=== PATIENT | male | born 1995 | race Caucasian/White ===

== ENCOUNTER 2017-11-22 22:19 | Inpatient (IN) | payer BC, OTHER ==
[2017-11-22] MEDS ORDERED: Ibuprofen 800 MG TAB ONE (22:35)
[2017-11-22] MEDS ORDERED: Ondansetron HCl/PF 4 MG/2 ML Vial ONE (22:35)
[2017-11-22 23:01] LABS: #Basophils 0.1 thou/uL (0.0-0.2); #Eosinphils 0.1 thou/uL (0.0-0.7); #Lymphocytes 4.7 thou/uL (1.20-3.40); #Monocytes 1.4 thou/uL (0.11-0.59); #Neutrophils 8.3 thou/uL (1.40-6.50); %Basophils 0.9 % (0.0-1.0); %Eosinophils 0.6 % (0.0-10.0); %Lymphocytes 32.3 % (28.0-48.0); %Monocytes 9.5 % (0.0-4.0); %Neutrophils 56.7 % (31.0-61.0); Hemoglobin 13.8 g/dL (14.0-18.0); Mean Corpuscular HGB CONC 35.6 g/dL (32.0-36.0); Mean Corpuscular Hemoglobin 31.4 pg (25.0-35.0); Mean Corpuscular Volume 88.1 fl (77.0-87.0); Mean Platelet Volume 9.3 fL (7.4-10.4); Platelet Count 259 thou/uL (130-400); RBC Distribution Width 9.1 % (11.5-14.5); Red Blood Cell (RBC) Count 4.41 mill/uL (4.00-5.20); White Blood Cell (WBC) Count 14.6 thou/uL (4.8-10.8)
--- NOTE | 2017-11-22 23:14 | RAD ---
TWO VIEWS OF THE CHEST 11/22/17 HISTORY: Cough and flu-like symptoms for four days. FINDINGS: Two views of the chest show normal sized cardiomediastinal silhouette. There is no evidence of consol idation, mass, or pleural effusion. The bones are unremarkable. IMPRESSION: No evidence of acute cardiopulmonary disease. POS: [facility]
[2017-11-22 23:15] LABS: ALT (SGPT) 31 U/L (8-55); AST (SGOT) 21 U/L (5-34); Albumin 4.1 g/dL (3.5-5.0); Alkaline Phosphatase 87 U/L (Less than 750); Anion Gap 15 mmol/L (10-20); BUN (Urea Nitrogen) 7 mg/dL (8.9-20.6); Bilirubin, Total 2.2 mg/dL (0.2-1.2); CK (CPK) 163 U/L (30-200); Calc. Creatinine Clearance 0 mL/min (70-130); Calcium 9.2 mg/dL (7.8-10.44); Carbon Dioxide 23 mmol/L (22-29); Chloride 103 mmol/L (98-107); Estimated GFR-MDRD Greater than 90; Globulin 3.6 g/dL (2.4-3.5); Glucose 106 mg/dL (70-105); Potassium 3.6 mmol/L (3.5-5.1); Protein, Total 7.7 g/dL (6.0-8.3); Sodium 137 mmol/L (136-145)
[2017-11-22 23:16] LABS: CKMB 0.6 ng/mL (0-6.6); Troponin I 0.067 ng/mL (< 0.028)
[2017-11-22] MEDS ORDERED: Sodium Chloride 0.9% 100 ML ONE (23:53)
[2017-11-22] MEDS ORDERED: Piperacillin/Tazobactam 3.375 GM VIAL ONE (23:53)
--- NOTE | 2017-11-22 23:59 | CT ---
CTA OF THE CHEST WITH CONTRAST: 11/22/17 COMPARISON: None. HISTORY: Cough for a month and dyspnea. TECHNIQUE: Multiple contiguous axial images were obtained in a CTA of the chest with contrast per pulmonary embo lism protocol. 3D oblique MIP reformats and direct coronal reformats were performed. FINDINGS: The pulmonary arteries are well opacified without filling defects to suggest pulmonary emboli. The he art is normal in size. No hilar or mediastinal lymphadenopathy are seen. No pneumothorax or pleural effusion are seen. No suspicious pulmonary nodule is identified. No focal infiltrates are seen in the lungs. The visualized subdiaphragmatic structures are unremarkable. The bones and chest wall soft tissues ar e unremarkable. IMPRESSION: No evidence of pulmonary thromboembolism or acute cardiopulmonary process. POS: [facility]
[2017-11-23 00:11] LABS: Bilirubin Negative (Negative); Blood, Urine Moderate (Negative); Clarity Slightly Cloudy (Clear); Glucose, Urine (Dipstick) Negative (Negative); Leukocyte Negative (Negative); Nitrite Negative (Negative); Protein, Urine (Dipstick) 30 mg/dL (Neg-Trace); Urobilinogen > or = 8.0 mg/dL (0.2-1.0)
[2017-11-23 00:19] LABS: Hyaline Casts/LPF NONE SEEN LPF (0-3 Hyaline); Squamous Epithelial 0-3 HPF (0-3); WBC/HPF 0-3 HPF (0-3)
[2017-11-23 00:20] LABS: Bacteria/HPF Rare-Few HPF (None Seen)
[2017-11-23] MEDS ORDERED: Acetaminophen 325 MG TAB PO PRN (01:39)
[2017-11-23] MEDS ORDERED: Sodium Chloride 0.9% 1,000 ML IV SCH ×2 (01:39→13:39)
[2017-11-23] MEDS ORDERED: Ondansetron HCl/PF 4 MG/2 ML Vial IVP PRN ×2 (01:39→08:58)
[2017-11-23] MEDS ORDERED: Ondansetron ODT 4 MG TAB SL PRN (01:39)
[2017-11-23 02:17] VITALS: BMI 34.3
[2017-11-23 02:26] LABS: Troponin I 0.072 ng/mL (< 0.028)
[2017-11-23] MEDS ORDERED: HYDROcodone/Acetaminophen 5/325 mg Tablet PO PRN (03:20)
[2017-11-23] MEDS: Sodium Chloride 0.9% 1,000 ML IV SCH ×2 (03:49→12:27)
--- NOTE | 2017-11-23 04:05 | HP ---
CHIEF COMPLAINT: Fevers. HISTORY OF PRESENT ILLNESS: The patient is a 22-year-old male who presents with a 3-day history of w orsening body aches, fevers, coughing and chills as well as fatigue. The patient was seen by his [facility] doctor and started on Tamiflu 2 days ago; however, he has tested negative for the flu. Of note, he was in [facility] on 10/23/2017 to 10/30/2017. He had a cough since returning from there; however, none of the other symptoms. The patient also has had some decreased appetite since he start ed having his fevers. PAST MEDICAL HISTORY: Childhood asthma. PAST SURGICAL HISTORY: None. SOCIAL HISTORY: Negative for tobacco or alcohol use. ALLERGIES: No known drug allergies. MEDICATIONS: None. REVIEW OF SYSTEMS: Please see HPI. Rest of 14-point review of systems is negative. LABORATORY AND X-RAY DATA: The patient's CBC, white count was 14.6, H and H 13 and 38 with a platele t of 259. D-dimer is 0.3. Sodium is 137, potassium 3.6, chloride 103, bicarb 23, BUN 7, creatinine 0.8. The patient's UA was negative for leukocyte esterase. PHYSICAL EXAMINATION: VITAL SIGNS: Latest vitals, temperature is 100.5, T-max was 103 today in the other ER, pulse 100, re spirations are 18, the patient satting 98% on 2 liters, and blood pressure is 148/84. GENERAL: The patient is awake, alert, and oriented x3, in no acute distress. HEENT: Pupils are equally round and reactive to light and accommodation. Extraocular muscles intact . TMs are clear. No erythema in throat. NECK: No JVD, no lymphadenopathy. HEART: Regular rate and rhythm. LUNGS: Clear to auscultation bilaterally. ABDOMEN: Positive bowel sounds. Soft, nontender, nondistended. EXTREMITIES: No clubbing, cyanosis or edema. ASSESSMENT AND PLAN: 1. Viral illness. Continue supportive care. Go ahead and finish up course of Tamiflu. The patient did get antibiotics and the other IV and we will continue for now with further decision on this once next CBC is back and we will see how clinically patient is doing. Continue supportive care. Contin ue IV fluids. 2. Code status: The patient is FULL CODE.
[2017-11-23 04:39] LABS: #Eosinphils 0.1 thou/uL (0.0-0.7); #Lymphocytes 3.6 thou/uL (1.20-3.40); #Monocytes 1.2 thou/uL (0.11-0.59); #Neutrophils 5.2 thou/uL (1.40-6.50); %Basophils 0.3 % (0.0-1.0); %Eosinophils 0.6 % (0.0-10.0); %Lymphocytes 35.9 % (28.0-48.0); %Monocytes 11.9 % (0.0-4.0); %Neutrophils 51.2 % (31.0-61.0); Hemoglobin 12.6 g/dL (14.0-18.0); Mean Corpuscular Hemoglobin 32.8 pg (25.0-35.0); Mean Corpuscular Volume 93.6 fl (77.0-87.0); Mean Platelet Volume 8.4 fL (7.4-10.4); Platelet Count 238 thou/uL (130-400); RBC Distribution Width 10.3 % (11.5-14.5); Red Blood Cell (RBC) Count 3.84 mill/uL (4.00-5.20); White Blood Cell (WBC) Count 10.1 thou/uL (4.8-10.8)
[2017-11-23 05:14] LABS: Anion Gap 12 mmol/L (10-20); BUN (Urea Nitrogen) 6 mg/dL (8.9-20.6); Calc. Creatinine Clearance 238 mL/min (70-130); Calcium 8.6 mg/dL (7.8-10.44); Carbon Dioxide 25 mmol/L (22-29); Chloride 109 mmol/L (98-107); Estimated GFR-MDRD Greater than 90; Glucose 100 mg/dL (70-105); Potassium 4.1 mmol/L (3.5-5.1); Sodium 142 mmol/L (136-145)
[2017-11-23 05:15] LABS: Troponin I 0.053 ng/mL (< 0.028)
[2017-11-23] MEDS: Oseltamivir 75 MG CAP PO SCH ×2 (07:33→20:51)
[2017-11-23] MEDS ORDERED: Piperacillin/Tazobactam 3.375 GM in Sodium Chloride 0.9% 100 ML IVPB SCH (08:00)
[2017-11-23] MEDS ORDERED: Ondansetron ODT 4 MG TAB PO PRN (08:58)
[2017-11-23] MEDS ORDERED: Milk Of Magnesia 30 ML UDCUP PO PRN (08:58)
[2017-11-23] MEDS ORDERED: Bisacodyl 10 MG SUPP PR PRN (08:58)
[2017-11-23] MEDS ORDERED: Vancomycin HCl 1 GM in Premix Bag 1 BAG IVPB SCH ×2 (09:00→13:00)
[2017-11-23] MEDS ORDERED: Meropenem 1 GM in Sodium Chloride 0.9% 100 ML IVPB SCH (09:00)
[2017-11-23] MEDS ORDERED: Cepastat Lozenges 1 LOZ PO PRN (11:42)
[2017-11-23] MEDS ORDERED: guaiFENesin/Codeine Phosphate 200 mg/20 mg 10 ml UD Cup PO PRN (11:42)
[2017-11-23] MEDS ORDERED: Diabetic Tussin 200 MG/10 ML UDCUP PO PRN (11:42)
[2017-11-23] MEDS ORDERED: Benzonatate 100 MG CAP PO PRN (11:42)
[2017-11-23] MEDS ORDERED: guaiFENesin ER 600 MG TAB PO SCH (11:45)
[2017-11-23] MEDS ORDERED: Meropenem 1 GM in Sterile Water 20 ML SLOW IVP SCH (12:00)
[2017-11-23] MEDS ORDERED: cefTRIAXone\\ROCEPHIN 1 GM in Sodium Chloride 0.9% 100 ML IVPB SCH (12:15)
[2017-11-23] MEDS: cefTRIAXone\\ROCEPHIN 1 GM, Syringe 0.4 ML in Sterile Water 9.6 ML SLOW IVP SCH (12:31)
[2017-11-23] MEDS: Acetaminophen 325 MG TAB PO PRN ×2 (12:34→23:59)
[2017-11-23] MEDS ORDERED: Vancomycin HCl 1.75 GM in Sodium Chloride 0.9% 500 ML IVPB SCH (13:00)
[2017-11-23 13:27] LABS: HIV (1/2) Antibody/Antigen Non-Reactive (NonReactive); HIV 1/2 INDEX 0.11 S/CO (<1.00)
--- NOTE | 2017-11-23 14:58 | CON ---
DATE OF CONSULTATION: 11/23/2017 REASON FOR CONSULTATION: Cough, fever, tachycardia. HISTORY OF PRESENT ILLNESS: A 22-year-old, first admission to this hospital, who has a history of as thma and apparently went to [facility] the beginning of October and came back a week later, and then for the past week or so has developed fever, cough, chills, fatigue. He was given Tamiflu, particul ronda in view of the fact that the family members had had proven influenza. He had an influenza test, which was negative. This was an antigen test. No headaches, no sore throat, no odynophagia or dysp hagia, no dyspnea or chest pain, no abdominal pain. He has some back pain from coughing. No genitou rinary symptoms. No joint symptoms. No skin disorder. No neurological symptoms. PAST MEDICAL HISTORY: Asthma. PAST SURGICAL HISTORY: Negative. SOCIAL HISTORY: Student. Never smoker. ALLERGIES: None. CURRENT MEDICATIONS: Tylenol, [place], DuoNeb, Tessalon, Dulcolax, Robitussin, Mucinex, meropenem, ond ansetron, also Famvir, vancomycin. FAMILY HISTORY: Noncontributory except for the influenza outbreak in the family recently. PHYSICAL EXAMINATION: VITAL SIGNS: Patient has been T-max 100.5, currently 99.7; BP 145/79, pulse 108, respirations 16, O2 sat 98%. GENERAL: Coughing intermittently, in fact he has a hard time in holding back his cough, has difficul ty in breathing, taking deep breaths in speaking because of coughing spells. SKIN EXAMINATION: Normal peripheral IV access. No Ortiz catheter. No lymphadenopathy. HEENT: Ocular movements are conjugate. Oral cavity normal. Teeth in good shape. NECK: Supple, no jugular venous distention. LUNGS: With fairly symmetric clear breath sounds, no wheezing. HEART: S1, S2, regular rate. No S3 or S4. ABDOMEN: Soft, not distended or tender. No ascites. No bladder distention, no edema. EXTREMITIES: Pulses are 1+ in dorsalis pedis. NEUROLOGIC EXAMINATION: Nonfocal. Cognitive function normal. LABORATORY DATA: White cell count 14.6 and 10.1, hemoglobin 13, and MCV 88, platelets 259, 56% neutr ophils, 32% lymphocytes, monocytosis with 9.5%, total monocyte count and total lymphocyte count is el evated. D-dimer 0.3, creatinine 0.86, glucose 106, bilirubin 2.2. Transaminases and alkaline phosph atase normal. Albumin 4.1. Troponin 0.067. Urinalysis with 11-20 rbcs and 0-3 wbcs. The patient h ad a chest CT with angiogram, no abnormalities noted. Chest x-ray with no evidence of acute cardiopu lmonary disease. ASSESSMENT: 1. Recent travel to [facility]. 2. Influenza outbreak in the family members 3. Fever and cough. DISCUSSION: Differential diagnosis includes influenza A or B versus Bordetella pertussis infection. We will add azithromycin to treatment regimen. Discontinue meropenem and vancomycin and switch him to Rocephin instead until final results of blood cultures available. Wait on respiratory pathogen PC R results.
--- NOTE | 2017-11-23 18:18 | CON ---
DATE OF SERVICE: 11/23/2017 SERVICE: Pulmonary Medicine. REASON FOR CONSULTATION: Respiratory failure. HISTORY OF PRESENT ILLNESS: The patient is a 22-year-old white male with past medical history significant for essentially nothing. He has a possible history of asthma. He does not take any medications chronically for it. He was in his usual state of health until 3 days prior to admission when he started having fevers, myalgia, malaise, and increasing shortness of breath. He has a cough that was essentially dry. He presented to the Emergency Department and was discovered to be hypoxemic and subsequently admitted. He was given some couple of liters of fluid. He was given multiple antibiotics for her possible community-acquired pneumonia versus other thing. When he gets up and walks around, he de-saturates down into the 80s, but then when he relaxes, his oxygen saturation actually improves a little bit. With 2 liters nasal cannula, he perks up to 94% while resting. Otherwise, there has been no interval changes to his condition. Overnight, he feels not much better. PAST MEDICAL HISTORY: Possible asthma. PAST SURGICAL HISTORY: None. SOCIAL HISTORY: Negative for alcohol, tobacco or illicit drug use. He denies any exposure to chemicals, asbestosis, or tuberculosis. Recent travel to [facility]. FAMILY HISTORY: Noncontributory. ALLERGIES: No known drug allergies. MEDICATIONS: List of his inpatient medications were reviewed and multiple updates were made. REVIEW OF SYSTEMS: General, head, ears, eyes, nose, throat, cardiovascular, respiratory, GI, , musculoskeletal, neurologic and skin is negative except as mentioned in the HPI. PHYSICAL EXAMINATION: VITAL SIGNS: Afebrile previously, but currently with a T-max of 101.1, pulse 111, blood pressure 128/88, respirations 18, saturation 97% on 1 liter nasal cannula. GENERAL: Patient is awake, alert, in no apparent distress. LUNGS: There is decreased air entry. There is a prolonged expiratory phase. Crackles are identified. No wheezing. HEART: Normal rate, regular. ABDOMEN: Soft, nontender, nondistended. Bowel sounds are positive. MUSCULOSKELETAL: No cyanosis or clubbing. There is trace pitting in the bilateral lower extremities. NEUROLOGIC: Grossly nonfocal. LABORATORY DATA: CBC is grossly unremarkable. Troponin is gently downtrending to 0.053. Liver function studies are unremarkable. Lactate is negative. Urinalysis is unremarkable. D-dimer 0.3. WBC 10.1, hemoglobin 12.6 and downtrending, platelets 238,000. Strep A was negative. Influenza A and B was unremarkable. Respiratory virus pathogen is pending. IMAGING: CTA of the chest demonstrates no acute cardiopulmonary abnormality. No PE. That being said, there are subtle changes possibly consistent with a little volume overload. The right ventricle and right atrium are generous in size. There is little bit of pleural or prominence to the pleural space, possibly consistent with fluid developing in the fissure. Pulmonary vasculature is at the upper limits of normal on chest x-ray. ASSESSMENT: 1. Acute hypoxic respiratory failure. 2. Acute bronchitis, suspected. 3. Possible asthma exacerbation. 4. Non-ST elevation myocardial infarction. PLAN: I will KVO his IV fluids. We will get an echocardiogram looking at LV function. I will add some steroids, nebulize medications. Empiric antibiotics directed at community-acquired pneumonia, and influenza will be continued. These can be deescalated in 1-2 days if he proves to have no infectious etiology. Agree with repeat liver function studies tomorrow. We keep an eye on that bilirubin if it is trending upward, investigation there will be pursued. Pulmonary Critical Care will continue to follow while the patient remains in this location. 70 minutes have been devoted to this patient in various activities. I personally reviewed all imaging studies and laboratory data noted within this document. For at least half of this time, I was interacting with the patient at bedside or coordinating care with the care team. For the remainder of the time, I was immediately available to the patient in the hospital unit. AMPARO
[2017-11-23] MEDS: guaiFENesin ER 600 MG TAB PO SCH (20:50)
[2017-11-24 05:12] LABS: ALT (SGPT) 26 U/L (8-55); AST (SGOT) 19 U/L (5-34); Albumin 3.9 g/dL (3.5-5.0); Alkaline Phosphatase 85 U/L (Less than 750); Anion Gap 13 mmol/L (10-20); BUN (Urea Nitrogen) 7 mg/dL (8.9-20.6); Bilirubin, Total 1.3 mg/dL (0.2-1.2); Calc. Creatinine Clearance 232 mL/min (70-130); Calcium 9.3 mg/dL (7.8-10.44); Carbon Dioxide 25 mmol/L (22-29); Chloride 104 mmol/L (98-107); Estimated GFR-MDRD Greater than 90; Globulin 3.5 g/dL (2.4-3.5); Glucose 169 mg/dL (70-105); Magnesium 2.3 mg/dL (1.7-2.2); Phosphorus 3.9 mg/dL (2.3-4.7); Potassium 3.9 mmol/L (3.5-5.1); Protein, Total 7.4 g/dL (6.0-8.3); Sodium 138 mmol/L (136-145)
[2017-11-24 05:15] LABS: Band 11 % (5-11); Hemoglobin 12.7 g/dL (14.0-18.0); Lymphocytes 26 % (28-48); MDiff Complete? YES; Mean Corpuscular HGB CONC 34.5 g/dL (32.0-36.0); Mean Corpuscular Hemoglobin 32.3 pg (25.0-35.0); Mean Corpuscular Volume 93.4 fl (77.0-87.0); Mean Platelet Volume 8.4 fL (7.4-10.4); Monocytes 5 % (0-4); Neutrophil 57 % (31-61); Platelet Count 306 thou/uL (130-400); RBC Distribution Width 10.3 % (11.5-14.5); Reactive Lymphocytes 1 % (0-10); Red Blood Cell (RBC) Count 3.95 mill/uL (4.00-5.20); White Blood Cell (WBC) Count 6.1 thou/uL (4.8-10.8)
[2017-11-24] MEDS: guaiFENesin ER 600 MG TAB PO SCH ×2 (07:43→20:32)
[2017-11-24] MEDS: Azithromycin 250 MG TAB PO SCH (07:43)
[2017-11-24] MEDS: Oseltamivir 75 MG CAP PO SCH (07:43)
[2017-11-24] MEDS: predniSONE 20 MG TAB PO SCH (07:43)
[2017-11-24] MEDS: cefTRIAXone\\ROCEPHIN 1 GM, Syringe 0.4 ML in Sterile Water 9.6 ML SLOW IVP SCH (14:08)
--- NOTE | 2017-11-24 17:09 | PRG ---
DATE OF SERVICE: 11/24/2017 SUBJECTIVE: Feeling better, still with dry cough intermittently. No chest pain , no abdominal pain or diarrhea. No genitourinary symptoms. No joint symptoms. OBJECTIVE: VITAL SIGNS: T-max 100.1 earlier today, blood pressure 115/64, pulse 107, respirations 20, O2 sat 95%. GENERAL: Cough intermittently, awake, alert. LUNGS: With faint inspiratory crackles, particularly in the right base. HEART: S1, S2, regular rate. ABDOMEN: Soft, not distended. EXTREMITIES: No joint inflammatory activity. LABORATORY DATA: White cell count 6.1, hemoglobin 12.7, platelets 306 and 57% neutrophils, 11% bands. Sodium 138, creatinine 0.78. Magnesium 2.3, bilirubin 1.3, albumin 3.9, globulin 3.5. HIV serology nonreactive. The Bordetella pertussis assay was negative. All the viral PCR negative and blood cultures no growth. Previous CT of chest with no infiltrates. ASSESSMENT: Recent travel to [facility], influenza outbreak in family members , fever and cough despite the negative influenza test, possibility of influenza is still significant with superimposed decompensation for asthma. The only concern about his presentation is that the duration of symptoms now is going on a month. Bordetella seems to be effectively ruled out. The other possibility would be a noninfectious syndrome such as hypersensitivity pneumonitis which is not yet overt in terms of pulmonary infiltrates. If he has recrudescence of the symptoms after discharge, then we have to consider that possibility and repeat CT of chest, may even need a bronchoscopy for diagnostic purposes, depending on progress of clinical and radiological findings. A vasculitis appears less likely. LUCIOD
--- NOTE | 2017-11-24 18:10 | PRG ---
DATE OF SERVICE: 11/24/2017 SERVICE: Pulmonary Medicine. INTERVAL HISTORY: The patient is really doing well from a respiratory standpoint. He continues to c ough, but he is bringing up less sputum. He also feels much improved as far as his breathing goes. He has returned to his usual state of health and has no specific complaints of nausea, vomiting, or c hest discomfort. Overnight, he had fever but since this morning, he has not had any additional febri le illnesses. PHYSICAL EXAMINATION: VITAL SIGNS: Currently afebrile with a T-max reported at 101.1. Pulse 107, blood pressure 115/64, r espirations 20, and saturation 95% on room air. GENERAL: The patient is awake and alert, in no apparent distress. LUNGS: Decent air entry. There is no prolonged expiratory phase. No wheezing is present. Dependen t crackles are minimal. HEART: Normal rate, regular. ABDOMEN: Soft, nontender, nondistended. Bowel sounds are positive. MUSCULOSKELETAL: No cyanosis or clubbing. There is no pitting in the bilateral lower extremities. NEUROLOGIC: Grossly nonfocal. LABORATORY DATA: WBC 6.1, hemoglobin 12.7, platelets 306,000. D-dimer is 0.9. Total bilirubin 1.3 and down trending, magnesium 2.3 and stable. Basic metabolic profile is otherwise unremarkable. His BNP was unremarkable. Troponin was negative/down trending to 0.05. Urinalysis was unremarkable. H IV 1 and 2 are nonreactive. [place]ison DNA is negative. Respiratory virus panel was negative. Strep A culture was negative. Blood cultures x2, and Influenza A and B were also unremarkable. ASSESSMENT: 1. Acute hypoxic respiratory failure, resolved. 2. Acute bronchitis. 3. Possible asthma with exacerbation. 4. Non-ST elevation myocardial infarction. DISCUSSION AND PLAN: The patient is doing absolutely fantastic from purely respiratory perspective. Echocardiogram was essentially unremarkable. We will continue our steroids, nebulized medications a nd antibiotics. From my perspective, the patient is stable for transition out of the [facility] to the [facility] floor. If his cough persists more than another month and a half, I have asked him to get in con tact with me so that we can workup this cough. I will continue to follow while he remains in-house f or now.
[2017-11-24 21:00] LABS: Legionella Urinary Ag Negative (Negative)
--- NOTE | 2017-11-24 21:33 | PDOC.PN ---
- Subjective Encounter Start Date: 11/24/17 Encounter Start Time: 16:30 Patient seen and examined. Cough +, Feels somewhat better. No overnight events - Objective Resuscitation Status: Resuscitation Status FULL:Full Resuscitation MAR Reviewed: Yes Vital Signs & Weight: Vital Signs (12 hours) Temp Pulse Resp BP Pulse Ox 11/24/17 20:00 98.5 F 130 H 20 122/68 96 11/24/17 19:08 110 H 20 94 L 11/24/17 16:32 110 H 20 95 11/24/17 15:51 98.5 F 107 H 20 115/64 95 11/24/17 11:58 109 H 24 H 96 11/24/17 11:40 98.7 F 110 H 20 143/76 H 95 Weight Weight 229 lb 14.4 oz I&O: 11/23/17 11/24/17 11/25/17 06:59 06:59 06:59 Intake Total 940 1320 3070 Output Total 1280 3060 1565 Balance -340 -1740 1505 Result Diagrams: 11/24/17 04:04 11/24/17 04:04 EKG Reviewed by me: Yes (Tele ) Phys Exam - Physical Examination Constitutional: NAD Respiratory: no wheezing, no rhonchi Cardiovascular: RRR, no rub Gastrointestinal: soft, non-tender, positive bowel sounds Musculoskeletal: no edema Neurological: moves all 4 limbs Dx/Plan - Plan DVT proph w/SCDs IMPRESSION: 1. Sepsis with acute organ dysfunction 2. Acute Bronchitis with suspected Pneumonia ?Viral 3. Acute Asthma Exacerbation 4. Elevated troponins due to demand ischemia. Echo done 5. Abn LFTs prob due to sepsis - improving. 6. Obesity BMI 33.1 PLAN: * Await Pertusis NAAT * ID/Pulm following * Cont Ceftriaxone/Azithromycin with Steroids/Nebs * Transfer to Tele * Cont to monitor * DC in AM if stable. Review of Systems - Review of Systems Cardiovascular: negative: chest pain, palpitations, orthopnea, paroxysmal nocturnal dyspnea, edema, light headedness Gastrointestinal: negative: Nausea, Vomiting, Abdominal Pain, Diarrhea, Constipation, Melena, Hematochezia - Medications/Allergies Allergies/Adverse Reactions: Allergies Allergy/AdvReac Type Severity Reaction Status Date / Time No Known Drug Allergies Allergy Verified 11/23/17 01:38 Medications: Current Medications Acetaminophen (Tylenol) 650 mg PO Q4H PRN PRN Reason: Headache/Fever or Pain Last Admin: 11/23/17 23:59 Dose: 650 mg Hydrocodone Bitart/Acetaminophen ([place] 5/325) 1 tab PO Q4H PRN PRN Reason: Moderate Pain (4-6) Albuterol/Ipratropium (Duoneb) 3 ml NEB [id number] [facility] Last Admin: 11/24/17 19:08 Dose: 3 ml Albuterol/Ipratropium (Duoneb) 3 ml NEB [id number] PRN PRN Reason: SOB &/or Wheezing Azithromycin (Zithromax) 500 mg PO DAILY [facility] Last Admin: 11/24/17 07:43 Dose: 500 mg Bisacodyl (Dulcolax) 10 mg VA Q24H PRN PRN Reason: Constipation Guaifenesin (Mucinex) 600 mg PO Q12HR [facility] Last Admin: 11/24/17 20:32 Dose: 600 mg Ceftriaxone Sodium 1 gm/ (Syringe 0.4 ml/ Sterile Water) 10 mls @ 120 mls/hr SLOW IVP Q24HR@1300 [facility] Last Admin: 11/24/17 14:08 Dose: 10 mls Magnesium Hydroxide (Milk Of Magnesium) 30 ml PO DAILYPRN PRN PRN Reason: Constipation Ondansetron HCl (Zofran Odt) 4 mg PO Q6H PRN PRN Reason: Nausea/Vomiting Ondansetron HCl (Zofran) 4 mg IVP Q6H PRN PRN Reason: Nausea/Vomiting Prednisone (Prednisone) 40 mg PO QAM-[facility] Stop: 11/27/17 08:01 Last Admin: 11/24/17 07:43 Dose: 40 mg Throat Lozenges (Cepastat Lozenges) 1 violeta PO Q2H PRN PRN Reason: Sore Throat
[2017-11-25] MEDS: Azithromycin 250 MG TAB PO SCH (08:02)
[2017-11-25] MEDS: guaiFENesin ER 600 MG TAB PO SCH (08:02)
[2017-11-25] MEDS: predniSONE 20 MG TAB PO SCH (08:02)
[2017-11-25 08:09] VITALS: BP 130/64; TEMP 98.3
--- NOTE | 2017-11-25 12:55 | PRG ---
DATE OF SERVICE: 11/25/2017 SERVICE: Pulmonary Medicine. INTERVAL HISTORY: The patient feels that he is basically back to his usual state of health. He continues to cough and clear his airway. Apparently, this has been going on for quite some time. It started about 2 to 3 months after he moved into his current apartment. Otherwise, there has been no interval change to his condition. PHYSICAL EXAMINATION: VITAL SIGNS: Afebrile, pulse 100, blood pressure 130/64, respirations 14, saturation 96% on room air. GENERAL: The patient is awake and alert, no apparent distress. LUNGS: Decent air entry. There is no prolonged expiratory phase or wheezing present. HEART: Normal rate, regular. ABDOMEN: Soft, nontender, nondistended, bowel sounds positive. MUSCULOSKELETAL: No cyanosis or clubbing. No pitting in the bilateral lower extremities. NEUROLOGIC: Nonfocal. ASSESSMENT: 1. Acute hypoxic respiratory failure, resolved. 2. Acute bronchitis. 3. Possible asthma with acute exacerbation. 4. Non-ST elevation myocardial infarction. 5. Obstructive sleep apnea, suspected. DISCUSSION AND PLAN: Since the patient is continues to do well and is essentially returned to his usual state of health, he can be considered for discharge. We can complete a 5-day course of antibiotics and steroids. He will return to clinic to see me in 1 to 2 months in the outpatient setting. At that time, we will start looking into this cough. In the meantime, he has been asked to do acid reflux precautions and consider treat any nasal type symptoms. We will investigate sleep apnea in the outpatient setting, his dad had severe sleep apnea and has likely pass on some throat features to his son that may predispose him to having this condition too. AMPARO
--- NOTE | 2017-11-25 19:16 | DIS ---
DATE OF ADMISSION: 11/22/2017 DATE OF DISCHARGE: 11/25/2017 DISCHARGE DISPOSITION: Home. FOLLOWUP: 1. Follow up with primary care physician Dr. Michelle Perdue in 1 week. 2. Follow up with Dr. Pina as scheduled. ALLERGIES: No known drug allergies. The patient was seen on the day of discharge. Denies any new complaints. Overall, feels better. DISCHARGE MEDICATIONS: Azithromycin 500 mg daily #5, Omnicef 300 mg b.i.d. #10, Mucinex 600 mg twice a day, prednisone 40 mg daily for the next 4 days, Tylenol as needed, Proventil inhaler as needed. INPATIENT CONSULTANTS: Infectious Disease, Dr. Morales; Pulmonary, Dr. Pina. BRIEF HOSPITAL COURSE: The patient is a 22-year-old male with asthma, presented to the hospital with 3-day history of worsening body aches, fever, coughing with chills, as well as fatigue. He was rece ntly started on Tamiflu. His flu testing was negative. Please refer to the history and physical tristan ed 11/22/2017 for further details. The patient was admitted to the intermediate care unit with a diagnosis of sepsis with acute organ dy sfunction probably secondary to acute bronchitis with suspected pneumonia. He was placed on broad-sp ectrum antibiotics. The patient was seen by Infectious Disease Dr. Morales as well as Pulmonary Dr. Amy josue. Due to indeterminate troponins, echocardiogram was done that showed ejection fraction of 60-6 5% with mild mitral regurgitation and mild tricuspid regurgitation. He showed good improvement with oxygen, nebulizer treatment, as well as antibiotics. Pertussis was also ruled out. His respiratory viral panel was negative. Blood cultures so far have been negative. He has been cleared by Pulmonar y and Infectious Disease for discharge. Other rare possibility could be hypersensitive pneumonitis. For this reason, he was advised to follow up with Dr. Pina as outpatient. He was advised to seek medical attention if his symptoms worsen. FINAL DIAGNOSES: 1. Sepsis with acute organ dysfunction. 2. Acute bronchitis with suspected pneumonia, questionable viral. 3. Acute asthma exacerbation. 4. Elevated troponins probably secondary to demand ischemia. 5. Abnormal liver function tests, probably secondary to sepsis, improving. 6. Obesity with a BMI of 33.1. Plan of care was discussed with the patient and the family in detail and they stated understanding.
== END 2017-11-25 09:58 | disposition home or self-care (01) | DRG 871 ==
LOC: SCSER 22:19 → IMCU/EMU 23:22
PROVIDERS: ADMIT Hospitalist; ATTEND Hospitalist
DX: R65.20 Severe sepsis without septic shock (principal); J96.01 Acute respiratory failure with hypoxia; J44.0 Chronic obstructive pulmonary disease with (acute) lower respiratory infection; J18.9 Pneumonia, unspecified organism; J45.901 Unspecified asthma with (acute) exacerbation; I24.8 Other forms of acute ischemic heart disease; A41.9 Sepsis, unspecified organism; J20.9 Acute bronchitis, unspecified; E66.9 Obesity, unspecified; Z68.33 Body mass index [BMI] 33.0-33.9, adult; R94.5 Abnormal results of liver function studies
CPT/HCPCS: 36415; 71046; 71275; 80048; 80053; 81003; 81015; 82553; 83605; 83735; 83880; 84100; 84484; 85007; 85025; 85027; 85379; 87040; 87081; 87389; 87430; 87633; 87798; 87804; 87899; 93005; 93306; 94640; 94760; 96361; 96365; 96375; A4216; J0696; J2185; J2405; J2543; J3370; J7050; J7620

== ENCOUNTER 2018-04-07 16:00 | Outpatient (CLI) | payer OTHER | END 2018-04-07 16:01 | disposition home or self-care (01) | LOC: SLEEPLAB 16:00 | PROVIDERS: ATTEND Internal Medicine | DX: G47.33 Obstructive sleep apnea (adult) (pediatric) (principal); R53.83 Other fatigue; R06.83 Snoring; K21.9 Gastro-esophageal reflux disease without esophagitis; G31.84 Mild cognitive impairment of uncertain or unknown etiology; R35.1 Nocturia | CPT/HCPCS: 95806 ==

== ENCOUNTER 2018-04-09 07:41 | Outpatient (CLI) | payer OTHER | END 2018-04-09 07:42 | disposition home or self-care (01) | LOC: CP 07:41 | PROVIDERS: ATTEND Internal Medicine | DX: J45.909 Unspecified asthma, uncomplicated (principal); R05 Cough; G47.33 Obstructive sleep apnea (adult) (pediatric) | CPT/HCPCS: 94060; 94727; 94729 ==